=== PATIENT | female | born 1960 | race Two or more races ===

== ENCOUNTER 2019-05-22 13:04 | Emergency (ER) | payer OTHER ==
[~2019-05-22] VITALS: Ht 165.1 cm; Wt 88.5 kg
[2019-05-22 14:18] LABS: Basophils # (auto) 0 uL; Basophils % (auto) 0.5 % (0.0-2.0); Eosinophils # (auto) 0.5 uL; Eosinophils % (auto) 4.8 % (0.0-7.0); Hematocrit 40.5 % (36.0-46.0); Hemoglobin 13.9 g/dL (12.2-16.2); Lymphocytes # (auto) 2.9 uL; Lymphocytes % (auto) 27.4 % (10.0-50.0); Mean Corpuscular Hemoglobin 28.3 pg (28.0-32.0); Mean Corpuscular Hgb Conc. 34.2 g/dL (32.0-36.0); Mean Corpuscular Volume 82.5 fL (80.0-100.0); Monocytes # (auto) 0.8 uL; Monocytes % (auto) 7.1 % (0.0-12.0); Neutrophils # (auto) 6.4 uL; Neutrophils % (auto) 60.2 % (37.0-80.0); Nucleated Red Blood Cells % 0.1 %; Platelet Count (auto) 272 10^3/uL (140-450); Red Cell Distribution Width 13.4 % (11.8-14.3); White Blood Cell 10.6 10^3/uL (4.4-10.8)
[2019-05-22 14:43] LABS: Albumin 3.7 g/dL (3.4-5.0); Anion Gap 6 (5-15); BUN/Creatinine Ratio 24.6; Blood Urea Nitrogen 17 mg/dL (7-18); Calcium 9.1 mg/dL (8.5-10.1); Carbon Dioxide 25 mmol/L (21-32); Chloride 110 mmol/L (98-107); GFR African American 112 mL/min; GFR Non-African American 93 mL/min; Glucose 100 mg/dL (74-106); Potassium 3.8 mmol/L (3.5-5.1); Sodium 141 mmol/L (136-145)
[2019-05-22 14:48] LABS: Alanine Aminotransferase 57 U/L (13-56); Alkaline Phosphatase 81 U/L (45-117); Aspartate Aminotransferase 28 U/L (15-37); Bilirubin, Total 0.5 mg/dL (0.2-1.0); Total Protein 8.3 g/dL (6.4-8.2)
[2019-05-22] MEDS ORDERED: methylPREDNISolone SOD SUCC 125 MG/2 ML VL IV ONE (18:45)
[2019-05-22] MEDS ORDERED: IPRATROPIUM BROM 0.5 MG/2.5ML INH SOL NEB ONE (18:45)
[2019-05-22] MEDS ORDERED: ALBUTEROL SULF 2.5 MG/0.5ML(0.5%) NEB SOLN NEB ONE (18:45)
[2019-05-22] MEDS ORDERED: AZITHROMYCIN 500MG/ 250ML 250 ML IV ONE (20:00)
[2019-05-22] MEDS ORDERED: PROMETHAZINE W/CODEINE 5 ML ORAL SYRUP PO ONE (20:00)
[2019-05-22 22:39] VITALS: BP 143/72
== END 2019-05-22 23:26 | disposition home or self-care (01) ==
LOC: ER 13:04
DX: J21.9 Acute bronchiolitis, unspecified (principal); J45.909 Unspecified asthma, uncomplicated
CPT/HCPCS: 36415; 71046; 80053; 84484; 85025; 93005; 94640; 96365; 96366; 96375; 99284; J0456; J2930; J7611; J7644

== ENCOUNTER 2021-11-04 04:15 | Inpatient (IN) | payer OTHER ==
[~2021-11-04] VITALS: Ht 165.1 cm; Wt 80.7 kg
[2021-11-04] MEDS ORDERED: ASPirin 81 mg TAB PO ONE (07:00)
[2021-11-04 07:59] LABS: Basophils # (auto) 0.1 10 ^3/uL (0-0.2); Basophils % (auto) 0.7 % (0.0-2.0); Eosinophils # (auto) 0.4 10 ^3/uL (0-0.8); Eosinophils % (auto) 4.1 % (0.0-7.0); Hematocrit 39.4 % (36.0-46.0); Hemoglobin 13.8 g/dL (12.2-16.2); Lymphocytes # (auto) 2.1 10 ^3/uL (0.4-5.4); Lymphocytes % (auto) 21.5 % (10.0-50.0); Mean Corpuscular Volume 83.1 fL (80.0-100.0); Monocytes # (auto) 0.8 10 ^3/uL (0-1.3); Monocytes % (auto) 7.7 % (0.0-12.0); Neutrophils # (auto) 6.6 10 ^3/uL (1.6-8.6); Nucleated Red Blood Cells % 0.5 %; Red Blood Cells 4.75 10^6/uL (4.0-5.20); Red Cell Distribution Width 13.6 % (11.8-14.3)
[2021-11-04 08:25] LABS: Potassium 4.8 mmol/L (3.5-5.1)
[2021-11-04 08:34] LABS: Albumin 3.6 g/dL (3.4-5.0); Bilirubin, Total 0.3 mg/dL (0.2-1.0); Calcium 8.8 mg/dL (8.5-10.1); Total Protein 8.3 g/dL (6.4-8.2)
[2021-11-04 13:07] LABS: Urine WBC None Seen /hpf (0 - 5)
[2021-11-04 13:27] LABS: Urine Amorphous Crystal FEW /hpf (None Seen); Urine Bacteria NONE SEEN /hpf (None Seen); Urine Blood Negative /uL (Negative); Urine Specific Gravity 1.021 (1.001-1.035)
[2021-11-04] MEDS ORDERED: LORazepam 2MG/ML-1ML VIAL IV ONE (15:00)
[2021-11-04 15:31] LABS: Amphetamine Screen, Urine NEGATIVE (NEGATIVE); Barbiturate Scree,Urine NEGATIVE (NEGATIVE); Benzodiazephine Screen, Urine NEGATIVE (NEGATIVE); Cannabinoid Screen, Urine NEGATIVE (NEGATIVE); Cocaine Screen, Urine NEGATIVE (NEGATIVE); Opiate Scree,Urine NEGATIVE (NEGATIVE); Phencyclidine Screen, Urine NEGATIVE (NEGATIVE)
[2021-11-04 17:24] LABS: Cholesterol 161 mg/dL (< 200); Triglycerides 168 mg/dL (< 150)
[2021-11-04 17:27] LABS: HDL Cholesterol 33 mg/dL (40-59); LDL Cholesterol 109 mg/dL (< 100)
[2021-11-04] MEDS: ACETAMINOPHEN 325 MG TAB PO PRN (22:04)
[2021-11-04] MEDS ORDERED: hydrALAZINE HCL 20 MG/ML VL IV ONE (22:30)
[2021-11-05 06:16] LABS: Albumin 3.4 g/dL (3.4-5.0); BUN/Creatinine Ratio 26.2; Potassium 4.4 mmol/L (3.5-5.1)
[2021-11-05 06:21] LABS: Bilirubin, Total 0.4 mg/dL (0.2-1.0); Total Protein 7.8 g/dL (6.4-8.2)
[2021-11-05 06:44] LABS: Basophils # (auto) 0 10 ^3/uL (0-0.2); Basophils % (auto) 0.5 % (0.0-2.0); Eosinophils # (auto) 0.3 10 ^3/uL (0-0.8); Eosinophils % (auto) 3.3 % (0.0-7.0); Hemoglobin 14.1 g/dL (12.2-16.2); Lymphocytes # (auto) 2.1 10 ^3/uL (0.4-5.4); Lymphocytes % (auto) 21.7 % (10.0-50.0); Mean Corpuscular Hemoglobin 28.8 pg (28.0-32.0); Mean Corpuscular Hgb Conc. 35.2 g/dL (32.0-36.0); Mean Corpuscular Volume 81.7 fL (80.0-100.0); Monocytes # (auto) 0.8 10 ^3/uL (0-1.3); Monocytes % (auto) 8.7 % (0.0-12.0); Neutrophils # (auto) 6.3 10 ^3/uL (1.6-8.6); Neutrophils % (auto) 65.8 % (37.0-80.0); Nucleated Red Blood Cells % 0.1 %; White Blood Cell 9.6 10^3/uL (4.4-10.8)
[2021-11-05] MEDS: ACETAMINOPHEN 325 MG TAB PO PRN ×2 (10:12→23:24)
[2021-11-05] MEDS ORDERED: LORazepam 2MG/ML-1ML VIAL IV ONE (13:45)
[2021-11-05] MEDS ORDERED: amLODIPine BESYLATE 5 MG TAB PO ONE (15:30)
[2021-11-05] MEDS ORDERED: AML5T PO (15:34)
[2021-11-05 16:00] VITALS: BP 176/89
[2021-11-05] MEDS ORDERED: hydrALAZINE HCL 20 MG/ML VL IV PRN (16:15)
[2021-11-05 21:13] VITALS: BP 148/72
[2021-11-05] MEDS ORDERED: PANTOPRAZOLE 40 MG TAB PO ONE (22:57)
[2021-11-05] MEDS ORDERED: DOCUSATE SOD 100 MG CAP PO ONE (23:00)
[2021-11-06] MEDS ORDERED: HYDROcodone-ACET 7.5/325MG TAB PO ONE (02:30)
[2021-11-06 05:00] VITALS: BP 121/59
[2021-11-06 09:00] VITALS: BP 141/76
[2021-11-06] MEDS ORDERED: PANTOPRAZOLE 40 MG TAB PO SCH (10:00)
[2021-11-06] MEDS ORDERED: amLODIPine BESYLATE 5 MG TAB PO SCH (10:00)
[2021-11-06 10:30] VITALS: BP 136/78
[2021-11-06] MEDS: ACETAMINOPHEN 325 MG TAB PO PRN (11:20)
[2021-11-06] MEDS ORDERED: HYDR-4902 PO (11:25)
== END 2021-11-06 14:00 | disposition home or self-care (01) | DRG 92 ==
LOC: ER 04:15 → TELE 14:03 → TELE-EAST 11-05 15:32
PROVIDERS: ADMIT Registered Nurse; ATTEND Internal Medicine
DX: R29.810 Facial weakness (principal); M48.56XA Collapsed vertebra, not elsewhere classified, lumbar region, initial encounter for fracture; R20.0 Anesthesia of skin; E11.22 Type 2 diabetes mellitus with diabetic chronic kidney disease; J45.909 Unspecified asthma, uncomplicated; N18.2 Chronic kidney disease, stage 2 (mild); G89.29 Other chronic pain; I12.9 Hypertensive chronic kidney disease with stage 1 through stage 4 chronic kidney disease, or unspecified chronic kidney disease; Z20.822 Contact with and (suspected) exposure to COVID-19; R80.9 Proteinuria, unspecified; M54.50 Low back pain, unspecified; R20.2 Paresthesia of skin
CPT/HCPCS: 36415; 70450; 70551; 72148; 80053; 80061; 80307; 81001; 82962; 83036; 84443; 84484; 85025; 85652; 86141; 93005; 93306; 93886; 96374; 96375; G0378